=== PATIENT | female | born 1980 | race Caucasian/White ===

== ENCOUNTER 2021-10-11 19:07 | Emergency (ER) | payer BC, SELFPAY ==
[2021-10-11 19:09] VITALS: BP 130/70; PULSE 77; RESP 18; TEMP 36.2; O2SAT 100
--- NOTE | 2021-10-11 19:25 | ED.GENADULT ---
HPI - General Adult General Chief complaint: Headache Stated complaint: migraine Time Seen by Provider: 10/11/21 19:15 Source: RN notes reviewed History of Present Illness HPI narrative: Patient presents emergency department from home for headache. Patient states she has a history migraine headaches that she gets frequently she states that her headache today is more severe and she gets headaches a severe proximal surgery 2 to 3 years she states she tried taking Imitrex at home with no relief states is associated with photosensitivity and nausea she denies any fevers or chills numbness or weakness of the extremities chest breath or any other symptoms patient states she took 50 mg of Imitrex at 4 PM today Related Data Allergies Allergy/AdvReac Type Severity Reaction Status Date / Time Cephalosporins Allergy Severe Swelling Verified 10/11/21 19:25 cefprozil Allergy Mild THROAT Verified 10/11/21 19:25 GOT ITCHY Review of Systems Review of Systems: Gen.: Denies fevers or chills Eyes: Denies eye pain or visual change ENT: Denies congestion Respiratory: Denies shortness of breath or cough CV: Denies chest pain or palpitations GI: Denies abdominal pain emesis or diarrhea, reports nausea denies Musculoskeletal: Denies back pain or muscle pain Neuro: See HPI Skin: Denies rash Except as documented, all other systems reviewed and negative [facility] Past Medical History Medical History (Updated 10/11/21 @ 23:10 by River Bush DO) Migraine headache Social History Social History (Updated 10/11/21 @ 19:26 by River Bush DO) Smoking status: Never smoker Exam Narrative: APPEARANCE: No acute distress, nontoxic, resting in bed EYES: EOMI HEENT: Normocephalic, atraumatic, OMM RESPIRATORY: No respiratory distress Clear to auscultation bilaterally with no rhonchi wheezing or rales. CARDIOVASCULAR: Regular rate and rhythm without murmurs rubs or gallops. ABDOMINAL: Soft, nontender, nondistended, no rebound or guarding MUSCULOSKELETAl: Moves all extremities. No clubbing, cyanosis or edema. NEURO: Awake and alert x 4. Following commands, speech normal, no focal deficits SKIN:: Warm, dry. No rashes lesions or abrasions PSYCHIATRIC: Normal affect/mood, Course Course Emergency Course: Patient states that she has been here before and had similar complaints with treatment with migraine cocktail I reviewed all the records patient has had success with subcu Imitrex Discussed with pharmacy discussed patient's p.o. Imitrex to 50 mg at 4 PM states she can receive subcu injection Patient feeling much better at this time ready for discharge Discussed with patient results of workup and diagnosis. Discussed need for follow-up with primary care, proper use of medication, and reasons to return to the emergency department. Patient understands and agrees to current treatment plan Vital Signs Vital signs: Vital Signs Temperature 97.2 F L 10/11/21 19:09 Pulse Rate 77 10/11/21 19:09 Respiratory Rate 18 10/11/21 19:09 Blood Pressure 130/70 10/11/21 19:09 Pulse Oximetry 100 10/11/21 19:09 Temperature 98.0 F 10/11/21 21:04 Pulse Rate 78 10/11/21 21:04 Respiratory Rate 14 10/11/21 21:04 Blood Pressure 92/52 L 10/11/21 21:04 Pulse Oximetry 96 10/11/21 21:04 Medical Decision Making Vital Signs Vital Signs: Vital Signs Temperature 97.2 F L 10/11/21 19:09 Pulse Rate 77 10/11/21 19:09 Respiratory Rate 18 10/11/21 19:09 Blood Pressure 130/70 10/11/21 19:09 Pulse Oximetry 100 10/11/21 19:09 Temperature 98.0 F 10/11/21 21:04 Pulse Rate 78 10/11/21 21:04 Respiratory Rate 14 10/11/21 21:04 Blood Pressure 92/52 L 10/11/21 21:04 Pulse Oximetry 96 10/11/21 21:04 Discharge Plan Discharge Clinical Impression: Migraine headache Patient Disposition: Home, Self-Care Condition: Stable Instructions: Antibiotic Form, Migraine Headache (ED) Addition
[2021-10-11] MEDS: ONDANSETRON INJ 4 MG/2 ML VIAL IV PUSH (19:31)
[2021-10-11] MEDS: KETOROLAC 30 MG/ML VIAL (*BKC) IV PUSH (19:32)
[2021-10-11] MEDS: diphenhydrAMINE HCl INJ 50 MG/ML VIAL 25 MG IV PUSH (19:32)
[2021-10-11] MEDS: SODIUM CHLORIDE 0.9% IV 1,000 ML 999 ML IV CONT ×2 (19:41→21:00)
[2021-10-11 21:04] VITALS: BP 92/52; PULSE 78; RESP 14; TEMP 36.7; O2SAT 96
[2021-10-11] MEDS: SUMAtriptan SUCCINATE 6 MG/0.5 ML VIAL SUB-Q (22:27)
[2021-10-11 23:24] VITALS: BP 110/62; PULSE 71; RESP 14; TEMP 36.6; O2SAT 98
== END 2021-10-11 23:29 | disposition home or self-care (01) ==
PROVIDERS: Emergency Provider Emergency Medicine; PCP Family Medicine
DX: G43.909 Migraine, unspecified, not intractable, without status migrainosus (principal)
CPT/HCPCS: 96361; 96365; 96372; 96375; 99284; J0131; J1200; J1885; J2405; J3030; J7030

== ENCOUNTER 2022-05-04 20:13 | Emergency (ER) | payer BC, SELFPAY ==
[2022-05-04 20:24] VITALS: BP 123/67; PULSE 65; RESP 16; TEMP 36.3; O2SAT 100
--- NOTE | 2022-05-04 21:10 | ED.HA ---
HPI - Headache General Chief Complaint: Headache <CAITY Kelsey Last Filed: 05/04/22 23:01> Stated Complaint: migraine <CAITY Kelsey Last Filed: 05/04/22 23:01> Time Seen by Provider: 05/04/22 20:49 <CAITY Kelsey Last Filed: 05/04/22 23:01> Source: patient <CAITY Kelsey Last Filed: 05/04/22 23:01> Mode of arrival: ambulatory <CAITY Kelsey Last Filed: 05/04/22 23:01> Limitations: no limitations <CAITY Kelsey Last Filed: 05/04/22 23:01> History of Present Illness HPI Narrative: Patient is a 41-year-old female who presents ED with report of migraine. Patient reports pain began this morning and is located more on the left side of her head. She has a history of migraines and states this feels similar. She takes Imitrex daily, but does occasionally have more severe migraines. She has not tried anything else for her pain today. Reports nausea, vomiting, photophobia, phonophobia. Denies recent head injury, dizziness, vision changes. <CAITY Kelsey Last Filed: 05/04/22 23:01> Related Data Home Medications: Home Medications Medication Instructions Recorded Confirmed sumatriptan succinate 100 mg tablet mg PO 05/04/22 05/04/22 <CAITY Kelsey Last Filed: 05/04/22 23:01> Allergies/Adverse Reactions: Allergies Allergy/AdvReac Type Severity Reaction Status Date / Time Cephalosporins Allergy Severe Swelling Verified 05/04/22 20:39 cefprozil Allergy Mild THROAT Verified 05/04/22 20:39 GOT ITCHY <CAITY Kelsey Last Filed: 05/04/22 23:01> Review of Systems Review of Systems: CONSTITUTIONAL: Denies fever, chills, or sweats. EYES: Reports photophobia. Denies visual changes. ENT: Reports phonophobia. CARDIOVASCULAR: Denies chest pain. RESPIRATORY: Denies dyspnea. GASTROINTESTINAL: Reports N/V. Denies abdominal pain or diarrhea. NEUROLOGIC: Reports migraine headache. Denies head injury, dizziness, numbness, or weakness. <Yin Chavez PA-C - Last Filed: 05/04/22 23:01> All systems reviewed & are unremarkable except as noted in HPI and below <Yin Chavez PA-C - Last Filed: 05/04/22 23:01> PMFSH Past Medical History Medical History: Medical History (Updated 05/04/22 @ 22:58 by Yin Chavez PA-C) Migraine headache <Yin Chavez PA-C - Last Filed: 05/04/22 23:01> Surgical History Surgical History: Surgical History (Updated 05/04/22 @ 21:10 by Yin Chavez PA-C) No pertinent past surgical history <Yin Chavez PA-C - Last Filed: 05/04/22 23:01> Social History Social History: Social History Smoking status: Never smoker <Yin Chavez PA-C - Last Filed: 05/04/22 23:01> Exam Narrative: GENERAL: Well appearing, well-nourished, non-toxic, in mild acute distress. HEAD: Normocephalic, atraumatic. EYES: PERRL/EOMI, conjunctivae clear bilaterally. NECK: Supple. No adenopathy, no masses. No meningeal signs. Full nonpainful range of motion. RESPIRATORY: Airway patent, respirations nonlabored. Clear to auscultation bilaterally, no rales, rhonchi, wheezing. CARDIOVASCULAR: Regular rate and rhythm without murmurs, rubs, or gallops. Peripheral pulses 2+ and equal bilaterally. ABDOMINAL: Soft, nontender, nondistended, no hepatosplenomegaly. Normoactive BS. MUSCULOSKELETAL: Moves all extremities. Strength/ROM intact without gross deformities. Strength 5/5 in upper and lower extremities bilaterally. Equal disaster recovery consultant strength bilaterally. SKIN: Warm, dry, normal color. No rashes. NEURO: A&O X3. Speech clear. Cranial nerves II-XII grossly intact. Steady gait. No ataxic movements. PSYCHIATRIC: Appropriate mood and affect. Normal interaction. <Yin Chavez PA-C - Last Filed: 05/04/22 23:01> Course
[2022-05-04] MEDS: SODIUM CHLORIDE 0.9% IV 1,000 ML 999 ML IV CONT (21:34)
[2022-05-04] MEDS: METOCLOPRAMIDE HCL INJ 10 MG/2 ML VIAL IV PUSH (21:44)
[2022-05-04] MEDS: KETOROLAC 30 MG/ML VIAL (*BKC) IV PUSH (21:44)
[2022-05-04] MEDS: diphenhydrAMINE HCl INJ 50 MG/ML VIAL 25 MG IV PUSH (21:44)
== END 2022-05-04 23:11 | disposition home or self-care (01) ==
PROVIDERS: Emergency Provider Emergency Medicine; PCP Family Medicine
DX: G43.909 Migraine, unspecified, not intractable, without status migrainosus (principal)
CPT/HCPCS: 96365; 96375; 99284; J0131; J1100; J1200; J1885; J2765; J7030

== ENCOUNTER → 2022-09-12 08:40 | Outpatient (CLI) | payer BC, SELFPAY ==
--- NOTE | ~2022-09-12 | MMUS_ITS ---
EXAMINATION: MM diagnostic estefany BI w rahat, US breast BI complete HISTORY: Left breast mass TECHNIQUE: Full field and spot ML, MLO and CC 3-D tomosynthesis images of both breasts were performed and synthetic 2-D images were generated. CAD analysis was submitted and interpreted. High resolution complete bilateral breast ultrasound examination including all 4 quadrants and subareolar areas was performed. COMPARISON: None BREAST PARENCHYMAL COMPOSITION: The breasts are heterogeneously dense, which may obscure small masses . FINDINGS: MAMMOGRAPHIC FINDINGS: There is an approximately 2 cm mildly irregular circumscribed mass in the anterior mid to lower outer left breast. Additional smaller low-density circumscribed masses are suggested in each breast but are not optimall y defined due to the heterogeneously dense stroma. Bilateral complete breast ultrasound examination w as performed. No malignant calcification, architectural distortion, skin thickening or retraction of either breast is detected. ULTRASOUND: Right breast: There are numerous benign appearing circumscribed lesions including simple cyst, septat ed cysts and circumscribed hypoechoic lesions. The largest of these is a simple cyst at 11:00 subareo lar area, measuring up to approximately 6 x 13 mm. No suspicious mass or shadowing of the right breast is detected. Left breast: At the palpable area at 4:00 3 cm from the nipple, corresponding to the approximately 2 cm mammographic mass in the mid to lower outer left breast, is an irregular hypoechoic solid mass niya suring approximately 2 x 1.8 x 2.3 cm dimension. There is through transmission. Some areas of the mar gins are not completely circumscribed. Due to the irregular incompletely circumscribed margins, ultra sound-guided biopsy is recommended. There are multiple scattered simple and septated cysts, the largest at 2:00 6 cm from the nipple, niya suring approximately 10 x 13 mm. IMPRESSION: 1. 2.3 cm solid mass of left breast at 4:00 3 cm from the nipple 2. Ultrasound-guided biopsy of the left 4:00 breast mass is recommended BI-RADS category 4, suspicious findings. Dr. Sheehan telephoned the report and ultrasound-guided biopsy recommendation of 4:00 left breast mass o n September 12, [address] Hannon's Bandage Wrapping Machine Operator Ghada. Reviewed, dictated and finalized at location A. CIATE PROFESSOR OF ECONOMICS IMPRESSION: 1. 2.3 cm solid mass of left breast at 4:00 3 cm from the nipple 2. Ultrasound-guided biopsy of the left 4:00 breast mass is recommended BI-RADS category [address], [address] Sheehan telephoned the report and ultrasound-guided biopsy recommendation of 4 :00 left breast mass on September 12, [address] Hannon's Bandage Wrapping Machine Operator Ghada.
== END ==
PROVIDERS: PCP Family Medicine; Visit Provider Obstetrics & Gynecology
DX: R92.8 Other abnormal and inconclusive findings on diagnostic imaging of breast (principal)
CPT/HCPCS: 76641; 77062; 77066; G0279